=== PATIENT | female | born 1970 | race Caucasian/White ===

== ENCOUNTER 2017-01-23 10:20 | Day surgery (SDC) | payer MEDICAID ==
[2017-01-23] MEDS ORDERED: LR 1,000 ML IV ONE (10:33)
[2017-01-23] MEDS ORDERED: LIDOCAINE 1% 2 ML INJ ID PRN (10:33)
[2017-01-23] MEDS ORDERED: PREGABALIN 150 MG CAP PO ONE (12:30)
[2017-01-23] MEDS ORDERED: ACETAMINOPHEN 500 MG TAB PO ONE (12:30)
[2017-01-23] MEDS ORDERED: ceFAZolin 2 GM/DEXTROSE 100 ML IV ONE (12:30)
--- NOTE | 2017-01-23 12:30 | PDGENHP ---
History and Physical - Chief Complaint left hip pain - History of Present Illness 1. Left~Femoroacetabular impingement (AFIZAN) Cam type, labral tear HISTORY OF PRESENT ILLNESS: Maribelis a 45 y.o.~active female~who I have had the pleasure to consult on today. ~I have enjoyed meeting her. She~lives in [place]. ~Maribelis currently not working. ~She~is ; she~has two~children. Maribelenjoys camping, fishing, gym. Maria Dolores's left~hip pain started 20~years ago, with no~recalled trauma or injury, and has gotten worse and more frequent over the past several years. She has also started developing numbness in her entire left leg over the past 2 years. Maribeldoes not have~a known history of hip dysplasia. Presentation today is C-Pattern left~hip pain. ~The hip does~wake her~at night and does~click and catch on her. Sitting can be uncomfortable~for her. Maribeldoes ~report suffering from lower back pain episodes. Maribelhas~participated in physical therapy and has~tried other conservative measures including a left hip GT~injection 3 weeks ago which has provided moderate relief. She~has~not received sufficient symptomatic improvement. Maribelhas~utilized medication for pain management due to her fibromyalgia, including OTC acetaminophen and oxycodone. Maribelhas used medication for 9 months. Maribeldenies issues with the right~hip. ~ Maribelunderstands that she~has a hip and pelvis problem which should be researched and wishes to get a better understanding of her~hip status, followed by an establishment of a treatment strategy, hoping she~would be able to get back to her~well being active life. History: Past medical history: ~ Fibromyalgia~ GERD DM CHF Relevant familial history: CAD Past surgical history: PastSurgicalHistory Past Surgical History Procedure Laterality Date C-sections Hysterectomy Gallbladder surgery Left shoulder breast,knee and foot Sinus surgery opened up sinuses Maribeldenies problematic issues with general anesthesia in the past. I have reviewed, verified and agree with the past medical, surgical, family and social history. Current Medications:~has a current medication list which includes the following prescription(s): carisoprodol, diphenhydramine hcl, esomeprazole, fluconazole, fluconazole, fluticasone, furosemide, lamotrigine, metformin, miscellaneous medical supply, oxycodone, ranitidine, and trazodone. ALLERGIES:~is allergic to amitriptyline; food extracts; hydromorphone; morphine ; nsaids (non-steroidal anti-inflammatory drug); and dilaudid [hydromorphone ( bulk)]. Objective: Physical Examination: Maria Dolores~is 5~feet 5~inches tall and weighs~206~Lbs. Maria Dolores~is AAO x3; she~is well- nourished, in NAD. Skin is warm and dry. ~Breathing is non-labored. ~CV with RRR by pulse. Abdomen is soft, NTND. Currently, she~walks with a normal~gait. Trendelenburg sign is negative~and proprioception~is reduced, both~sides. She~presents~with no~signs of joint laxity.~Beightons Score: 0 Lower spine examination is negative~for sciatic or femoral nerve irritation with negative~SLR &~femoral stretch tests. Range of motion of the spine is decreased~for flexion, extension, and rotations, with~associated pain. Sensation and pulses are normal - bilaterally. Strength on the left 4/5 for HF/ KE/KF/PF/DF/EHL. Ankles and knees exams are normal~and no~mal-alignment is evident. She~has~no leg length discrepancy. Thigh circumference is symmetric~with no evidence for muscle atrophy~on both~ sides. Hip ROM (degrees): FL ER At 90~hip FL IR At 90~hip FL AB AD EX IR Neutral hip ER Neutral hip R 90 70 0 45 5 0 25 30 L 90 55 0 40 0 0 25 30 Specific hip and pelvis tests: Quadrant ALOK Roll Add. Longus R + + Negative ++ L +++ +++ Negative ++ Glut. Med ITB Pos. Imp R Negative 5/5 strength Negative 5/5 strength Negative L Negative 5/5 strength Negative 5/5 strength Negative Squeeze test measured weak Bony Symphysis pubis is painful~to touch while concentric activity of the rectus abdominis, does~produce pain at its insertion. Ilio Psos specific tests are positive for pain during cycling for both hips~and remarkable for painful snap. HF has pain and weak on both sides. Both sides anterior and lateral~capsule tenderness. Greater trochanteric burse is painful~on both hips. Piriformis tests: FAIR is negative, with no~local signs of neuritis related to sciatic nerve. SIJs examination is normal~with normal~ALOK in relation and local tenderness. Hamstrings tests are positive~functional contraction and positive~tendinopathy both hips~(L > R). On a daily basis, the following percentages reflect Maria Dolores's overall total pain: Left hip is 50% of her overall pain.~Within the hip the distribution is: Deep hip: 75% GT: 25% Imaging: Radiology studies which I~have personally reviewed, analyzed and measured are below: XR: AP of the hip and pelvis: Performed in a good~technique Coccyx to pubic symphysis distance 3.2~cm. 0~caudal/cephal [place]~Lines are preserved. Moderate~Pathological signs are seen in the Symphysis Pubis. Minimal~Pathological signs are seen at the Ischial~tuberosity. ~ Specific measurements show: NSA~ LCE Sourcil~Angle Sharp's angle Lat. Cam Lat. Pincer C.Over~sign Head~Coverage % ATDmm R N 26 7 47 - - - 74 N L N 32 6 42 - - - 83 N Pos. wall sign ISS NAD ~~Dysplasia Comments R Negative Negative 9~mm + L Negative Negative 8~mm Negative Sclerosis Sup. Lat. OA Cysts Joint Space-WBZ Joint Space-Medial R + + Negative 3.0~mm 3.8~mm L + + Negative 3.0~mm 3.7~mm X Table lateral: Anterior cam lesion is seen~on both hips. Alpha Angle: ~ Right 89~dergrees Left 93~degrees MRI shows:~Some thinning of the cartilage, edema within the superolateral acetabulum, normal sized labrum In order to differentiate between the various possible sources of pain Maria Dolores~ opted to move forward with an intra articular injection today in clinic. After verbal consent was obtained and Maria Dolores~voiced understanding of risks of infection , misplaced injection, fat or skin atrophy or injection into unintended structures, skin was prepped and draped in routine sterile fashion. With sterile technique, after local skin and subcutaneous tissues were injected with 5cc 1% lidocaine, an injection of 2cc of Kenalog 40 and 5cc of 1% lidocaine+ marcaine~was injected into Maria Dolores's hip joint without complication. Due to her body habitus the bony landmarks where somewhat difficult to palpate, thus there was some uncertainty as to the the exact location of the injection. The procedure was well tolerated. Maribelnoted improved symptoms with activity immediately after injection. The injection took 30% of the pain away, confirming ~the hip joint as a source~of pain for her. Impression and plan:~ Maribelis a 45 y.o.~active female~suffering from symptomatic left~hip pain due to Left~Femoroacetabular impingement (FAIZAN) Cam type~causing significant disability to her~and altering~her~sport and life activities. Physical examination, imaging, and her~story correspond with the diagnosis mentioned above. She is also suffering from back pain and numbness going down her entire left leg. This is not explained by her FAIZAN and is likely coming from her back. I explained that femoroacetabular impingement (FAIZAN) arises due to a bony or soft tissue conflict between the femur (ball) and acetabulum (socket) caused by an abnormality in the shape of the hip joint. Over time, repetitive impingement can result in damage to the labrum and adjacent surface cartilage within the socket, ultimately giving rise to progressive osteoarthritis of the hip. I explained that although a labral tear can be a source of pain, it is rarely the root of the problem and typically occurs secondary to an underlying abnormality in the shape and mechanics of the hip joint. ~ I reviewed conservative treatment options for FAIZAN including activity modification to avoid positions of impingement, physical therapy, non-steroidal anti-inflammatory medications, and various injections (corticosteroid and PRP) aimed at reducing inflammation in the hip joint or/and preventing dynamic impingement. PRP injections may promote healing and reduce symptoms in certain cases but it will not repair chronically damaged tissue. Although these measures may help to buy time~and reduce current level of symptoms, they are not a definitive solution to the problem given the underlying abnormality in the shape of the hip joint. Patients who have failed conservative management and continue to experience symptoms are candidates for hip arthroscopy, a minimally invasive surgery that can definitively address the underlying problem. Hip arthroscopy typically includes treating the labrum with either repair or reconstruction of the torn labrum; as well as addressing the underlying abnormalities by restoring the normal shape to the hip joint. ~If the cartilage is damaged a Microfracture surgical procedure may also be necessary to help stimulate the growth of fibrocartilage. ~If a patient requires a labral reconstruction or a Microfracture, the initial rehabilitation from the surgery may take longer, but the alf results are typically favorable. I have explained that because of her age and gender, the results of hip arthroscopy are less reproducible/predictable than with younger patients or male patients of the same age. I reviewed the technical aspects of hip arthroscopy including risks, benefits, and expected course of recovery. Maribelunderstands that hip arthroscopy is a minimally invasive outpatient procedure carried out through small incisions on the outer aspect of the hip joint. During surgery, the labral tear will be identified and either repaired or reconstructed~using bone anchors and suture material. Additionally, any excessive bone will be removed with a high-speed elizabeth to reshape the hip joint and restore normal anatomy. Risks include infection, bleeding, injury to nearby nerves or vessels, stiffness, persistent pain, instability, venous thromboembolic disease, and traction related complications including temporary foot numbness. Rarely, revision surgery may be required to address these problems. Overall recovery takes approximately 4~~ 8~months depending on the extent of damage and degree of repair. In the event that the labral tissue quality is inadequate for successful repair and healing, Maribelunderstands that a labral reconstruction will be performed. This procedure entails placing a cadaver tissue graft within the hip joint and stabilizing it with bone anchors to build a new labrum. The overall recovery time for labral reconstruction is similar to that of labral repair, although the surgical procedure takes longer to perform. Maribelwill review the info presented. Maribelwill return for a follow-up visit in 3 months. We may need a guided injection for her to verify sources of pain. Also, due to bone edema, age, gender and some instability characteristics she is not an optimal candidate for preservation procedure and we should discuss this in length if/when the option is considered. We have also recommended that she return to the Spine clinic for evaluation of her left leg numbness and weakness. Maribelis happy with this plan. I have also supplied her~with handouts, outlining the expected surgical treatment and rehab involved. I wish~Maria DoloresRodríguezall the best, ~~ Robin Crowder MD History Information - Allergies/Home Medication List Allergies/Adverse Reactions: amitriptyline [From Elavil] Allergy (Verified 01/09/17 16:08) SEIZURE aspirin Allergy (Verified 01/09/17 16:08) GI UPSET fluoxetine [From Prozac] Allergy (Verified 01/09/17 16:08) SEIZURE hydromorphone [From Dilaudid] Allergy (Verified 01/09/17 16:08) RESP DIFFICULTY ibuprofen Allergy (Verified 01/09/17 16:08) GI UPSET morphine Allergy (Verified 01/09/17 16:08) RESP DIFFICULTY tramadol Allergy (Verified 01/09/17 16:08) SEIZURE DISORDER Home Medications: Albuterol 5 mg/ml INH 01/09/17 [Last Taken 2 Days Ago] Allopurinol 01/09/17 [Last Taken 01/22/17 21:00] Benadryl 01/09/17 [Last Taken 3 Days Ago] Flonase Nasal [place] 01/09/17 [Last Taken 01/22/17 12:00] Herbals/Supplements -Info Only 01/09/17 [Last Taken 1 Week Ago] Lasix 01/09/17 [Last Taken 01/22/17 07:00] Metformin HCl 01/09/17 [Last Taken 01/22/17 18:00] Nexium 01/09/17 [Last Taken 01/23/17 07:00] Oxycodone HCl 01/09/17 [Last Taken 01/22/17 15:00] Ranitidine HCl 01/09/17 [Last Taken 01/22/17 21:00] Trazodone HCl 01/09/17 [Last Taken 1 Week Ago] Methocarbamol 01/10/17 [Last Taken 01/22/17 08:00] SOMA 01/10/17 [Last Taken 01/22/17 23:30] I have personally reviewed and updated: medical history - Social History Smoking Status: Current some day smoker Physical Exam Temp Pulse Resp BP Pulse Ox 36.9 C 78 16 126/87 H 96 01/23/17 10:49 01/23/17 10:49 01/23/17 10:49 01/23/17 10:49 01/23/17 10:49 Lab Data & Imaging Review POC Glucose 102 mg/dL (70-100) H 01/23/17 11:12
[2017-01-23] MEDS ORDERED: MIDAZOLAM 2 MG/2 ML VIAL IVP ONE (12:52)
--- NOTE | 2017-01-23 12:54 | PDANEPAE ---
ANE Past Medical History - Cardiovascular History Hx Hypertension: No Hx Arrhythmias: No Hx Chest Pain: No Hx Coronary Artery / Peripheral Vascular Disease: No Hx CHF / Valvular Disease: No Hx Palpitations: No Cardiovascular History Comment: MILD CHF - Pulmonary History Hx COPD: No Hx Asthma/Reactive Airway Disease: Yes Hx Recent Upper Respiratory Infection: No Hx Oxygen in Use at Home: No O2 in Use at Home (L/minute): NOC O2 @2L Hx Sleep Apnea: No Sleep Apnea Screening Result - Last Documented: Negative Pulmonary History Comment: CHRONIC BRONCHITIS - Neurologic History Hx Cerebrovascular Accident: No Hx Seizures: Yes Hx Dementia: No Neurologic History Comment: 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 BOTH DUE TO MED REACTIONS - Endocrine History Hx Diabetes: Yes Obesity: yes, severe Endocrine History Comment: DM II - Renal History Hx Renal Disorders: No - Liver History Hx Hepatic Disorders: Yes Hepatic History Comment: CHOLECYSTECTOMY - Neurological & Psychiatric Hx Hx Neurological and Psychiatric Disorders: Yes Neurological / Psychiatric History Comment: ANXIETY & DEPRESION - Cancer History Hx Cancer: Yes Cancer History Comment: CERVICAL CA - Congenital Disorder History Hx Congenital Disorders: No - GI History GERD: moderate Hx Gastrointestinal Disorders: Yes Gastrointestinal History Comment: GERD - Other Health History Other Health History: NEG - Chronic Pain History Chronic Pain: Yes (FIBROMYALGIA,GOUT) - Surgical History Prior Surgeries: TONSILLECTOMY & ADENOIDECTOMY. CHOLECYSTECTOMY. HYSTERECTOMY. L FOOT. L KNEE. L SHOULDER. L WRIST. TUMOR L BREAST ANE Review of Systems - Exercise capacity METS (RN): 3 METS ANE Patient History - Allergies Allergies/Adverse Reactions: amitriptyline [From Elavil] Allergy (Verified 01/09/17 16:08) SEIZURE aspirin Allergy (Verified 01/09/17 16:08) GI UPSET fluoxetine [From Prozac] Allergy (Verified 01/09/17 16:08) SEIZURE hydromorphone [From Dilaudid] Allergy (Verified 01/09/17 16:08) RESP DIFFICULTY ibuprofen Allergy (Verified 01/09/17 16:08) GI UPSET morphine Allergy (Verified 01/09/17 16:08) RESP DIFFICULTY tramadol Allergy (Verified 01/09/17 16:08) SEIZURE DISORDER - Home Medications Home medications: home medication list seen and reviewed Home Medications: Albuterol 5 mg/ml INH 01/09/17 [Last Taken 2 Days Ago] Allopurinol 01/09/17 [Last Taken 01/22/17 21:00] Benadryl 01/09/17 [Last Taken 3 Days Ago] Flonase Nasal [place] 01/09/17 [Last Taken 01/22/17 12:00] Herbals/Supplements -Info Only 01/09/17 [Last Taken 1 Week Ago] Lasix 01/09/17 [Last Taken 01/22/17 07:00] Metformin HCl 01/09/17 [Last Taken 01/22/17 18:00] Nexium 01/09/17 [Last Taken 01/23/17 07:00] Oxycodone HCl 01/09/17 [Last Taken 01/22/17 15:00] Ranitidine HCl 01/09/17 [Last Taken 01/22/17 21:00] Trazodone HCl 01/09/17 [Last Taken 1 Week Ago] Methocarbamol 01/10/17 [Last Taken 01/22/17 08:00] SOMA 01/10/17 [Last Taken 01/22/17 23:30] - NPO status NPO Since - Liquids (Date): 01/23/17 NPO Since - Liquids (Time): 07:00 NPO Since - Solids (Date): 01/22/17 NPO Since - Solids (Time): 23:00 - Anes Hx Anes Hx: no prior problems - Smoking Hx Smoking Status: Current every day smoker - Alcohol Use Alcohol Use: Rarely - Family Anes Hx Family Anes Hx: none Family Hx Anesthesia Complications: NEG ANE Labs/Vital Signs - Vital Signs Blood Pressure: 126/87 Heart Rate: 78 Respiratory Rate: 16 O2 Sat (%): 96 Height: 165.1 cm Weight: 93.894 kg
[2017-01-23] MEDS ORDERED: PROPOFOL/EMULSION 500 MG/50 ML BOTTLE IV ONE ×3 (13:13→14:29)
[2017-01-23] MEDS ORDERED: fentaNYL 100 MCG/2 ML INJ ONE ×4 (13:14→17:08)
[2017-01-23] MEDS ORDERED: HYDROmorphONE/DILAUDID 2 MG/ML INJ ONE (13:39)
[2017-01-23] MEDS ORDERED: BUPIVACAINE/EPI 0.25% 30 ML SDV ONE (14:19)
[2017-01-23] MEDS ORDERED: ONDANSETRON 4 MG/2 ML VIAL ONE (14:38)
[2017-01-23] MEDS ORDERED: DEXAMETHASONE 4 MG/ML VIAL ONE ×2 (14:38)
[2017-01-23] MEDS ORDERED: ROCURONIUM 100 MG/10 ML VIAL ONE (14:38)
[2017-01-23] MEDS ORDERED: LIDOCAINE 2% 5 ML SDV ONE (14:39)
[2017-01-23] MEDS ORDERED: ONDANSETRON 4 MG/2 ML VIAL IVP PRN (15:36)
[2017-01-23] MEDS ORDERED: ONDANSETRON DISINTEGRATING 4 MG TAB PO PRN (15:36)
[2017-01-23] MEDS ORDERED: OXYCODONE/APAP 5/325 TAB PO PRN ×2 (15:36→16:53)
[2017-01-23] MEDS ORDERED: PROPOFOL 200 MG/20 ML VIAL ONE (16:00)
[2017-01-23] MEDS ORDERED: fentaNYL 100 MCG/2 ML INJ IVP PRN ×2 (16:53)
[2017-01-23] MEDS ORDERED: ENALAPRILAT DIHYDRATE 1.25 MG/ML VIAL IVP PRN (16:53)
[2017-01-23] MEDS ORDERED: MEPERIDINE 25 MG/ML SYR IVP PRN (16:53)
[2017-01-23] MEDS ORDERED: LR 500 ML IV PRN (16:53)
[2017-01-23] MEDS ORDERED: NALOXONE HCL 0.4 MG/ML INJ IVP PRN (16:53)
[2017-01-23] MEDS ORDERED: PROMETHAZINE HCL 25 MG/ML INJ IVP PRN (16:53)
--- NOTE | 2017-01-23 16:58 | POSTANESTH ---
Post Anesthetic Evaluation Cardiovascular Status: Normal, Stable Respiratory Status: Similar to Pre-op Cond. Level of Consciousness/Mental Status: Mildly Sleepy, Arousable Pain Control: Adequate, Prn Tx Ordered Nausea/Vomiting Control: Adequate, Prn Tx Ordered Complications Possibly Related to Anesthesia: None Noted
[2017-01-23] MEDS ORDERED: LABETALOL HCL 5 MG/ML 20 ML MDV IVP ONE (17:06)
[2017-01-23] MEDS ORDERED: LABETALOL HCL 5 MG/ML 20 ML MDV IVP PRN (17:06)
[2017-01-23] MEDS ORDERED: OXYCODONE/APAP 5/325 TAB ONE (17:37)
[2017-01-23 17:50] VITALS: RESP 18
[2017-01-23 18:57] VITALS: BP 129/78; PULSE 82; TEMP 99; O2SAT 95
== END 2017-01-23 18:58 | disposition home or self-care (01) ==
LOC: FSGY 10:20
PROVIDERS: ATTEND Orthopaedic Surgery Sports Medicine
PROC: 0QQ74ZZ Repair Left Upper Femur, Percutaneous Endoscopic Approach (ICD-10-PCS; principal; 2017-01-23 12:00)
DX: S73.192A Other sprain of left hip, initial encounter (principal); M25.852 Other specified joint disorders, left hip; K21.9 Gastro-esophageal reflux disease without esophagitis; J38.3 Other diseases of vocal cords; G47.30 Sleep apnea, unspecified; I50.9 Heart failure, unspecified; E11.9 Type 2 diabetes mellitus without complications; F17.200 Nicotine dependence, unspecified, uncomplicated; M79.7 Fibromyalgia; Z85.41 Personal history of malignant neoplasm of cervix uteri
CPT/HCPCS: 29914; 29916; 76001; C1769; C1713; J0690; J1100; J1170; J2250; J2405; J2704; J3010